=== PATIENT | female | born 1965 | race Caucasian/White ===

== ENCOUNTER 2025-02-12 16:40 | Emergency (ER) | payer OTHER, SELFPAY ==
--- NOTE | ~2025-02-12 | US_ITS ---
CLINICAL HISTORY: R flank pain, hx stones US abdomen limited Comparison: None Findings: The pancreas is obscured by gas, with small amount of visualized pancreatic head and body. The IVC is unremarkable. The liver is normal in size. There is diffusely increased echogenicity of the liver. There is no intrahepatic bile duct dilatation. The common duct is up to 13 mm in diameter. The gallbladder is surgically absent. There is no sonographic Waddell sign. The main portal vein is antegrade. The right kidney is 9.2 cm in length. There is an echogenic stone versus artifact in the right kidney measuring 6 mm in thickness no hydronephrosis. Normal cortical thickness. No ascites. IMPRESSION: 1. No hydronephrosis of the right kidney. Echogenic 6 mm structure in the right kidney, which could be a nonobstructing stone versus artifact. 2. Surgically absent gallbladder. Common bile duct measures up to 13 mm, which could be due to reservoir effect, but could also be due to common bile duct stricture, stone or mass. No intrahepatic biliary ductal dilatation. 3. Diffuse fatty infiltration of the liver. This document has been electronically signed by: Yash Pyle MD on 02/12/2025 18:28:16
--- NOTE | 2025-02-12 16:43 | ED_ITS ---
HPI - Abdominal Pain General Chief Complaint: Urogenital-Female Stated Complaint: ?kidney stone Time Seen by Provider: 02/12/25 21:58 History of Present Illness ED Provider: Amy SO narrative: The patient is a 59-year-old woman who says that yesterday she had an episode of pain in her right flank that lasted about an hour or an hour and a half. It was associated with nausea and vomiting. Pain ultimately subsided spontaneously. She then had a recurrence of the same pain today and came to the emergency room. While waiting to be seen in the emergency room her pain has resolved again spontaneously. No fever, sweats, chills. The patient has not had a confirmed diagnosis of kidney stones at any point in the past. She says that when she was people thought she might have had a kidney stone but that was never proven. She has no headache, no chest pain, no shortness of breath. At the moment she has no nausea. No urinary discomfort. Related Data Allergies Allergy/AdvReac Type Severity Reaction Status Date / Time No Known Allergies Allergy Verified 02/12/25 16:49 Review of Systems Review of Systems Yes all other systems are reviewed and are negative [facility] Social History Social History Smoked in Last 30 Days: No Use of substances other than those prescribed or required for medical reasons: No Advance Directives: No Advance Directives Information Provided: Yes Do you have a plan to hurt others: No Plan Patient : No Physical Exam ED Vital Signs: Vital Signs - 24 hr 02/12/25 16:47 02/12/25 22:17 02/12/25 22:18 Temperature 98 F 97.6 F 97.6 F Pulse Rate 68 67 67 Respiratory Rate 18 16 16 Blood Pressure 150/83 H 113/59 L 113/59 L Pulse Oximetry 98 100 100 Oxygen Delivery Method Room Air Room Air Room Air BMI result Body Mass Index 33.5 Const General: cooperative, healthy appearing, no acute distress, well developed, alert, awake and Physically active Orientation/consciousness: patient oriented x3 HENMT Head: Yes normal to inspection Face and sinus: Yes normal facial exam Mouth: moist mucous membranes Eyes General: appearance normal, both eyes and all related structures Neck Neck: Yes full ROM Resp Effort & Inspection: normal respiratory effort Auscultation: clear to auscultation bilaterally Cardio Rhythm: regular rhythm Heart sounds: S1 normal heart sound present and S2 normal heart sound present GI Other: the abdomen is soft and nontender. General: Yes no CVA tenderness Back/Spine/Pelvis Back: no CVA tenderness Skin General skin exam: no rashes or lesions noted Neuro General: patient oriented x3, gait normal, moves all extremities, no focal motor deficits and CN's II-XI intact bilaterally Extrem Other: No peripheral edema Course Course Course Narrative: This is a Rapid Medical Exam performed in triage by Shakira Nicholas PA-C. Full HPI, ROS and PE to be performed by primary ED provider. 59 yo F w/PMHx renal stones during presenting to the ED c/o R flank pain x yesterday with assoc N/V & urinary frequency/hesitancy. 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 PE: abdomen soft & nontender, no CVAT Plan: Labs, UA, US Medical Decision Making Medical Decision Making MDM Narrative: the patient is a very pleasant 59-year-old woman who describes having had 2 episodes of significant right flank pain associated with nausea and vomiting. She had an episode of pain yesterday that lasted about an hour and a half and then another pain today that brought her to the emergency room. Her pain today has again spontaneously resolved. The patient has no history of kidney stones ( although at triage she had implied that she might have had a previous kidney stone). Her urinalysis shows some microscopic hematuria. No sign of infection. An ultrasound shows no hydronephrosis. There is a question of a possible 6 mm intrarenal stone on the right. The ultrasound also shows that she has had a cholecystectomy and her CBD measures 13 mm. Clinically the patient is not presenting as choledocholithiasis in my opinion. My overall impression is that the patient may have had 2 episodes of ureteral colic and may have passed a stone. She certainly describes right flank pain radiating to the right groin. The patient was offered a CT scan for further evaluation but she was feeling better and has been in the emergency room for a few hours and preferred being discharged. I think this is reasonable. She should follow up with her PCP to discuss these episodes further or to return to the emergency room if she has worsening symptoms. Lab Data 02/12/25 17:08 02/12/25 17:08 Labs: Lab Results 02/12/25 Range/Units 17:08 WBC 9.7 (4.8-10.8) X10*3/uL RBC 4.75 (4.20-5.50) X10*6/uL Hgb 13.6 (12.0-16.0) g/dl Hct 40.2 (37.0-47.0) % MCV 84.6 (80.0-98.0) fL MCH 28.6 (27.0-33.0) pg MCHC 33.8 (31.0-35.0) g/dl RDW 12.5 (11.0-16.0) % Plt Count 288 (160-400) X10*3/uL MPV 9.3 L (9.4-12.3) fL Immature Gran % (Auto) 0.3 (0.0-0.4) % Neut % (Auto) 69.4 (45-73) % Lymph % (Auto) 23.5 (20-40) % [place] % (Auto) 6.1 (2-11) % Eos % (Auto) 0.2 (0-4) % Baso % (Auto) 0.5 (0-2) % Lymph # (Auto) 2.3 (1.2-4.9) X10*3/uL [place] # (Auto) 0.6 (0.1-1.2) X10*3/uL Eos # (Auto) 0.0 (0.0-0.4) X10*3/uL Baso # (Auto) 0.1 (0.0-0.2) X10*3/uL Abs Immat Gran (auto) 0.03 (0.00-0.03) X10*3/uL Absolute Neuts (auto) 6.7 (2.0-8.3) x10*3/uL Absolute Nucleated RBC 0.000 (0.0-0.012) X10*3/uL Nucleated RBC % (auto) 0.0 (0.0-0.2) /100WBC Sodium 141 (135-145) mmol/L Potassium 4.1 (3.3-5.1) mmol/L Chloride 110 H (96-108) mmol/L Carbon Dioxide 23 (22-29) mmol/L Anion Gap 12 (12-20) BUN 18 H (9-16) mg/dL Creatinine 0.96 (0.5-1.4) mg/dL Estim Creat Clear Calc 55.1 Estimated GFR 59 Random Glucose 89 (60-115) mg/dL Calcium 9.7 (8.4-10.2) mg/dL Magnesium 2.0 (1.6-2.6) mg/dL Total Bilirubin 0.5 (0.0-1.0) mg/dL Direct Bilirubin 0.2 (0.0-0.5) mg/dL AST 30 (5-31) U/L ALT 42 H (0-31) U/L Alkaline Phosphatase 115 (39-117) U/L Total Protein 8.0 (6.5-8.0) g/dL Albumin 4.6 (3.5-5.0) g/dL Lipase 32 (8-78) U/L Urine Color Yellow Urine Appearance Cloudy Urine pH 5.0 (5.0-9.0) Ur Specific [place] 1.025 (1.005-1.025) Urine Protein 30 (1+) H (Neg-Trace) mg/dL Urine Glucose (UA) Negative (Negative) mg/dL Urine Ketones Trace (Negative) mg/dL Urine Blood Large (3+) H (Negative) Urine Nitrite Negative (Negative) Ur Leukocyte Esterase Negative (Negative) Urine RBC 6-10 H (0-2) /HPF Urine WBC 0-5 (0-5) /HPF Ur Squamous Epith Cells 6-10 (0-2) /HPF Calcium Oxalate Crystal Present Urine Bacteria 1+ (None Seen) Hyaline Casts 0-2 (0-2) /LPF Discharge Plan Discharge Clinical Impression: Acute right flank pain, Microscopic hematuria Patient Disposition: Home, Self-Care Instructions: Kidney Stones (ED) Additional Instructions: I think you probably passed a kidney stone. Your ultrasound suggest that you might have a stone in your right kidney (this is not in a position where would have caused the pain you had earlier today and yesterday. This would be a different kidney stone). Please contact your regular doctor's office for a follow up appointment in the next couple of weeks to discuss this further. If you have significantly worsening pain I would return to the emergency room for additional evaluation at which point we would very likely do a CAT scan of your abdomen. Referrals: Karlie Herrera, [employer] [Primary Care Provider] - (Probable passed kidney stone) Interventions: ED Discharge Assessment Last Done: 02/12/25 22:18 Discharge Date/Time: 02/12/25 22:19 Print Language: [place]
[2025-02-12 16:47] VITALS: BP 150/83; PULSE 68; RESP 18; TEMP 36.6; O2SAT 98; BMI 33.5
[2025-02-12 17:12] LABS: MANUAL DIFF FLAG NO
[2025-02-12 17:14] LABS: Appearance Urine Cloudy; Basophils Absolute Auto 0.1 X10*3/uL (0.0-0.2); Basophils Percent Auto 0.5 % (0-2); Color Urine Yellow; Eosinophils Percent Auto 0.2 % (0-4); Glucose Urine UA Negative (Negative); Hematocrit 40.2 % (37.0-47.0); Hemoglobin 13.6 g/dl (12.0-16.0); Imm Gran Abs Auto 0.03 X10*3/uL (0.00-0.03); Imm Gran Pct Auto 0.3 % (0.0-0.4); Leukocyte Esterase Urine Negative (Negative); Lymphocytes Absolute Auto 2.3 X10*3/uL (1.2-4.9); Lymphocytes Percent Auto 23.5 % (20-40); Mean Corpuscular HGB Conc 33.8 g/dl (31.0-35.0); Mean Corpuscular Hemoglobin 28.6 pg (27.0-33.0); Mean Corpuscular Volume 84.6 fL (80.0-98.0); Mean Platelet Volume 9.3 fL (9.4-12.3); Monocytes Absolute Auto 0.6 X10*3/uL (0.1-1.2); Monocytes Percent Auto 6.1 % (2-11); Neutrophils Absolute Auto 6.7 x10*3/uL (2.0-8.3); Neutrophils Percent Auto 69.4 % (45-73); Nitrite Urine Negative (Negative); Platelet Count 288 X10*3/uL (160-400); Red Blood Count 4.75 X10*6/uL (4.20-5.50); Red Cell Distribution Width 12.5 % (11.0-16.0); Specific Gravity - Urine 1.025 (1.005-1.025); UMIC TRIGGER UACC YES; Urine Blood Large (3+) (Negative); Urine Ketones Trace mg/dL (Negative); Urine Protein 30 (1+) mg/dL (Neg-Trace); White Blood Count 9.7 X10*3/uL (4.8-10.8)
[2025-02-12 17:38] LABS: Alanine Aminotransferase 42 U/L (0-31); Albumin Level 4.6 g/dL (3.5-5.0); Alkaline Phosphatase 115 U/L (39-117); Anion Gap 12 (12-20); Aspartate Amino Transferase 30 U/L (5-31); Bilirubin Direct 0.2 mg/dL (0.0-0.5); Bilirubin Total 0.5 mg/dL (0.0-1.0); Blood Urea Nitrogen 18 mg/dL (9-16); Calcium 9.7 mg/dL (8.4-10.2); Carbon Dioxide 23 mmol/L (22-29); Chloride 110 mmol/L (96-108); Creatinine Clr Calc Pharmacy 55.1; Estimated Glomerular Filt Rate 59; Glucose Random 89 mg/dL (60-115); Potassium 4.1 mmol/L (3.3-5.1); Sodium 141 mmol/L (135-145)
[2025-02-12 17:50] LABS: Lipase 32 U/L (8-78)
[2025-02-12 18:10] LABS: Bacteria Urine 1+ (None Seen); Calcium Oxalate Crystals Urine Present; Hyaline Casts Urine 0-2 /LPF (0-2); WBC Urine 0-5 /HPF (0-5)
[2025-02-12 22:17] VITALS: BP 113/59; PULSE 67; RESP 16; TEMP 36.4; O2SAT 100
[2025-02-12 22:18] VITALS: BP 113/59; PULSE 67; RESP 16; TEMP 36.4; O2SAT 100
== END 2025-02-12 22:19 | disposition home or self-care (01) ==
PROVIDERS: Physician Assistant; Emergency Provider Emergency Medicine; PCP Nurse Practitioner Primary Care
DX: R10.9 Unspecified abdominal pain (principal); R31.9 Hematuria, unspecified; R11.2 Nausea with vomiting, unspecified
CPT/HCPCS: 36415; 76705; 80048; 80076; 81001; 83690; 83735; 85025; 99284

== ENCOUNTER → 2025-02-12 16:49 | Outpatient (BNV) | payer OTHER, SELFPAY | PROVIDERS: Visit Provider Radiology Diagnostic Radiology | DX: R10.31 Right lower quadrant pain (principal) | CPT/HCPCS: 76705 ==